=== PATIENT | male | born 1960 | race African-American/Black ===

== ENCOUNTER 2020-01-20 21:41 | Emergency (ER) | payer MEDICAID ==
[~2020-01-20] VITALS: Ht 185.4 cm; Wt 106.0 kg
[~2020-01-20 21:41] MED LIST: AMIT25TA9; CYCL7.5T25; DULO30CA2; HYDR-4009; QUET25TA; ZOLP10TA6; [UNRECOGNIZED DRUG - CODE]
[2020-01-20] MEDS ORDERED: ONDANSETRON HCL 4MG/2ML INJ IV STA (22:37)
[2020-01-20] MEDS ORDERED: MORPHINE SULFATE 4 MG/ML CPJ (NOT FOR IM USE) IV STA (22:37)
[2020-01-20] MEDS ORDERED: NITROGLYCERIN OINT 1GM/INCH UDPKT TD ONE (22:45)
[2020-01-20 23:01] LABS: BASOPHILS % 0.9 % (0.0-2.0); EOSINOPHILS % 4.9 % (0.0-5.0); HEMATOCRIT. 42.7 % (42.0-52.0); HEMOGLOBIN. 14.8 g/dL (14.0-18.0); LYMPHOCYTES % 43.6 % (20.0-50.0); MEAN CORPUSCULAR HEMOGLOBIN 29.6 pg (28.0-32.0); MEAN CORPUSCULAR VOLUME 85.7 fL (80.0-94.0); MEAN PLATELET VOLUME 10.3 fl (7.4-10.4); MONOCYTES % 7.3 % (2.0-8.0); NEUTROPHILS % 43.3 % (40.0-76.0); PLATELET 114 x1000/uL (130-400); RED BLOOD CELL COUNT 4.99 mill/uL (4.7-6.1); RED CELL DISTRIBUTION WIDTH 13.8 % (11.6-14.6)
[2020-01-20 23:02] LABS: CHLORIDE 110 mEq/L (98-107)
[2020-01-20 23:07] LABS: ETHANOL BLOOD < 10 mg/dL
[2020-01-21] MEDS ORDERED: MORPHINE SULFATE 4 MG/ML CPJ (NOT FOR IM USE) IV ONE (01:00)
[2020-01-21 01:30] VITALS: BP 118/62
[2020-01-21 01:45] LABS: *AMPHETAMINES SCREEN URINE NEGATIVE (NEGATIVE); *BARBITURATES SCREEN URINE NEGATIVE (NEGATIVE); *BENZODIAZEPINES SCREEN URINE NEGATIVE (NEGATIVE); *COCAINE SCREEN URINE NEGATIVE (NEGATIVE); METHADONE URINE SCREEN NEGATIVE (NEGATIVE); OPIATES URINE SCREEN PRESUMTIVE POSITIVE (NEGATIVE); PHENCYCLIDINE URINE SCREEN NEGATIVE (NEGATIVE)
[2020-01-21 01:47] LABS: CANNABINOID URINE SCREEN NEGATIVE (NEGATIVE)
== END 2020-01-21 01:45 | disposition short-term general hospital (02) ==
LOC: ER 21:41 → EDBEDREQ 23:49 → ER 01-21 01:45 → CANBEDREQ 01-21 16:57
DX: R07.89 Other chest pain (principal); I10 Essential (primary) hypertension; Z79.899 Other long term (current) drug therapy
CPT/HCPCS: 36415; 71045; 80053; 80305; 80320; 83880; 84484; 85025; 93005; 96374; 96375; 96376; 99285; J2270; J2405; G0480